=== PATIENT | male | born 1960 | race Caucasian/White ===

== ENCOUNTER 2016-08-02 08:07 | Emergency (ER) | payer SELFPAY ==
--- NOTE | 2016-08-02 08:11 | ED Physician Chart ---
Chief Complaint/HPI - Patient Information Date Seen:: 08/02/16 Time Seen:: 08:11 Chief Complaint:: knee pain History of Present Illness:: 56-year-old male, homeless, history of left foot fracture using crutches to ambulate, brought in by EMS, complains of acute, constant, aching, worse with movement, moderate to severe, 8 out of 10 at worst, nonradiating, left knee pain that happened about 20 minutes prior to arrival to the ER when he suffered mechanical fall and says he twisted his left knee. Also has some associated low back pain and neck pain. Historian:: Patient, EMS Review:: Nurse's Note Reviewed, EMS run form Reviewed Review of Systems - Review of Systems Other: Complete system review otherwise unremarkable except as noted in history of present illness. Past Medical History - Past Medical History Past Medical History: No significant medical hx Family History: None Social History: Non Smoker, Alcohol, No Drug Use Surgical History: None Psychiatricy History: None Medication: None Family Medical History - Family Member Mother History Unknown: Yes Physical Exam - Physical Examination Other:: INITIAL VITAL SIGNS: Reviewed by me GENERAL: Alert and interactive. No acute distress. Disheveled. HEAD: Head is normocephalic and atraumatic EYES: EOMI. PERRL. No scleral icterus. No conjunctival injection ENT: Moist mucous membranes. NECK: Supple. No masses. Full range of motion RESPIRATORY: No tachypnea. Clear breath sounds bilaterally. No wheezing, rales, or rhonchi CV: Regular rate and rhythm. No murmurs, rubs, or gallops ABDOMEN: Soft, non-distended, non-tender. No guarding. No rebound. No masses. EXTREMITIES: Left knee is slightly tender to palpation with limited range of motion due to pain. Left lower extremity has posterior short leg cast. There is edema and erythema over the dorsum of the left foot. SKIN: Warm and dry. No obvious rashes. NEUROLOGIC: Alert and oriented. Face is symmetric. Speech is normal. Moves all extremities equally. Motor and sensory distally intact. Labs/Radiology/EKG Results - Radiology Results Results: X-ray left Foot 2V Interpreted by me: Bones: No fracture Joints: No dislocation Foreign body: None X-ray left Knee 3V Interpreted by me: Bones: No fracture Joints: No dislocation Foreign body: None CT cervical spine and lumbar spine per radiology NAD. ED Septic Shock - . Is Septic Shock (SBP<90, OR Lactate>4 mmol\L) present?: No Reassessment (Disposition) - Reassessment Reassessment:: Blood pressure was noted to be elevated over 120/80. There were no signs of hypertension. Discussed the findings with the patient and recommended that the patient follow up with the primary care physician regarding the elevated blood pressure. OBSERVATION Patient has no reported family history of chronic alcoholism. Patient first seen at 0811. Observation began at 0900 and was necessary in order to determine sepsis versus elevated lactic acid due to chronic alcoholism. Upon reevaluation, observation revealed that the patient should be discharged. Patient discharged at 1530, total time of observation 6 hours, 30 minutes. Elevated lactic acid due to chronic alcoholism. Patient has elevated leukocytosis as well. No apparent source of infection. However we will cover with antibiotics for underlying possible cellulitis left lower extremity. Sodium noted to be 120. Patient appeared asymptomatic. Most likely due to a combination of SIADH and hypovolemic hyponatremia. Patient did receive IV hydration. Also received by mouth salt tablets and IV banana bag. Ate several meals. Patient x-rays were unremarkable for any acute fractures. Acute left knee pain due to knee sprain. Gave Toradol injection here in the ER. Patient is homeless and does consume alcohol chronically. Appears to be dehydrated. Gave 2 L IV normal saline. No apparent infective source on this patient. Patient ate several meals and drinks. Requested discharge. Patient discharged from the emergency department. Follow-up free clinic for primary care within 1-2 days. Gave return to ER precautions. Patient says he understands and agrees with the plan. Reassessment Condition:: Improved - Diagnosis Diagnosis:: Acute left knee pain due to acute knee sprain Elevated blood pressure without diagnosis of hypertension Hyponatremia Elevated lactic acid due to chronic alcohol abuse - Aftercare/Follow up Instructions Aftercare/Follow-Up Instructions:: Counseled pt regarding lab results/diagnosis & need follow up, Refer to Discharge Instructions Medication Prescribed:: Amoxicillin Bactrim - Patient Disposition Discharge/Transfer:: Home Time:: 15:30 Condition at Disposition:: Improved ED Discharge Plan - Patient Disposition Admit/Discharge/Transfer: PT DISCHARGED HOME Condition at Disposition: Improved Instructions: Knee Sprain, [id number]
--- NOTE | 2016-08-02 09:26 | Diagnostic Imaging Report ---
Left foot (2 views) HISTORY: Pain No acute bony abnormality seen at this time. No fractures. Joint spaces appear normal. Regularity and hypertrophic spur formation noted off the posterior aspect of the calcaneus. Small spur formation also noted off the plantar aspect of the posterior calcaneus. IMPRESSION: 1. No acute bony abnormalities 2. Calcaneal spur formation In the presence of recent trauma and persistent symptoms, a repeat radiograph in 5-7 days may be helpful for detection of a subtle or occult fracture.
--- NOTE | 2016-08-02 09:26 | Diagnostic Imaging Report ---
Left knee (3 views, portable) HISTORY: Pain, trauma No acute bony abnormalities. No fractures. Joint spaces appear normal. IMPRESSION: No acute abnormalities
[2016-08-02] MEDS: Sodium Chloride 0.9% 2,000 ML IV ONE (09:57)
[2016-08-02 10:13] LABS: HEMOGLOBIN 11.6 gm/dL (13.2-17.3); MEAN PLATELET VOLUME 8.1 fl; PLATELET COUNT 185 Th/cmm (150-400); RED BLOOD COUNT 3.06 Mil/cmm (4.30-5.70); RED CELL DISTRIBUTION WIDTH 13.4 % (11.5-20.0)
--- NOTE | 2016-08-02 10:17 | Diagnostic Imaging Report ---
CT scan cervical spine HISTORY: Pain, trauma Total DLP equals 787 CTDI equals 32.5 Axial sections were obtained to the cervical spine. Additional sagittal and coronal reformatted images are provided. There are diffuse degenerative changes with hypertrophic spur formation noted about the endplates of all vertebrae. Findings are most pronounced at C5-6. Cystic changes noted within the odontoid process consistent with a degenerative etiology. No acute abnormalities. No fractures. Prevertebral soft tissues appear normal. IMPRESSION: 1. No acute abnormalities 2. Degenerative changes
--- NOTE | 2016-08-02 10:18 | Diagnostic Imaging Report ---
CT scan lumbar spine HISTORY: Pain, trauma Total DLP equals 1351 CTDI equals 48.6 Axial sections were obtained through the lumbar spine. Additional sagittal and coronal reformatted images are provided. There are diffuse degenerative changes with hypertrophic spur formation noted about the endplates of all vertebrae. Findings most pronounced at L4. No acute abnormalities. No fractures. No significant extradural abnormalities are seen. IMPRESSION: 1. No acute abnormalities 2. Diffuse degenerative changes
[2016-08-02 10:23] LABS: INR 1.53 (0.5-1.4); PROTHROMBIN TIME (TEST) 16.2 SECONDS (9.5-11.5)
[2016-08-02] MEDS: cefTRIAXone 1 GM in Sodium Chloride 0.9% 50 ML IV ONE (10:26)
[2016-08-02 10:28] LABS: ALB/GLOB RATIO 0.4 (1.0-1.8); ALKALINE PHOSPHATASE 105 U/L (34-104); ANION GAP 8.4 (7.0-16.0); BILIRUBIN,TOTAL 2.4 mg/dL (0.3-1.0); BUN - UREA NITROGEN 17 mg/dL (7-25); BUN/CREATININE RATIO 18.9; CALCIUM SERUM 7.9 mg/dL (8.6-10.3); CHLORIDE 88 mEq/L (98-107); CREATININE - SERUM 0.9 mg/dL (0.7-1.3); GLUCOSE 122 mg/dL (70-105); POTASSIUM SERUM 3.4 mEq/L (3.5-5.1); SGOT 124 U/L (13-39); SGPT/ALT 37 U/L (7-52)
[2016-08-02 10:35] LABS: SODIUM SERUM 120 mEq/L (136-145); WHITE BLOOD COUNT 18.5 Th/cmm (4.8-10.8)
[2016-08-02 10:36] LABS: MEAN CELL VOLUME 107.8 fl (80-99); MEAN CORPUSCULAR HEMOGLOBIN 37.8 pg (26.0-30.0)
[2016-08-02 10:39] LABS: BAND NEUTROPHILE 10 % (0-10); NEUTROPHILS 86 % (40-80); PLATELET ESTIMATE ADEQUATE (NORMAL); PLATELET MORPHOLOGY NORMAL (NORMAL); TOTAL CELLS COUNTED 100
[2016-08-02] MEDS: Sodium Chloride 0.9% 1,000 ML IV ONE (10:53)
[2016-08-02] MEDS: MAGNESIUM SULFATE IV ONE (13:50)
[2016-08-02] MEDS: [UNRECOGNIZED DRUG - OTHER] IV ONE (13:50)
[2016-08-02] MEDS: FOLIC ACID IV ONE (13:50)
[2016-08-02] MEDS: MULTIVITAMIN IV ONE (13:50)
[2016-08-02 13:52] LABS: ANION GAP 8.3 (7.0-16.0); BUN - UREA NITROGEN 18 mg/dL (7-25); CALCIUM SERUM 7.7 mg/dL (8.6-10.3); CARBON DIOXIDE 25.2 mEq/L (21.0-31.0); CHLORIDE 92 mEq/L (98-107); CREATININE - SERUM 0.9 mg/dL (0.7-1.3); GLUCOSE 128 mg/dL (70-105); POTASSIUM SERUM 3.5 mEq/L (3.5-5.1); SODIUM SERUM 122 mEq/L (136-145)
== END 2016-08-02 17:01 | disposition home or self-care (01) ==
LOC: ER 08:07
DX: S83.92XA Sprain of unspecified site of left knee, initial encounter (principal); R03.0 Elevated blood-pressure reading, without diagnosis of hypertension; E87.1 Hypo-osmolality and hyponatremia; R74.0 Nonspecific elevation of levels of transaminase and lactic acid dehydrogenase [LDH]; W19.XXXA Unspecified fall, initial encounter; Y93.89 Activity, other specified; Y92.89 Other specified places as the place of occurrence of the external cause; Y99.8 Other external cause status
CPT/HCPCS: 36415-UA; 72125-TC; 72131-TC; 73562-TC-LT; 73620-TC-LT; 80048-TC; 80053-TC; 83605; 85007-TC; 85027-TC; 85610-TC; 85730-TC; J1885; J7030